=== PATIENT | female | born 1995 | race Caucasian/White ===

== ENCOUNTER 2017-07-06 23:37 | Inpatient (IN) | payer MEDICAID, OTHER ==
[~2017-07-06] VITALS: Ht 165.1 cm; Wt 94.0 kg
[2017-07-07 00:39] VITALS: BP 125/78; PULSE 90; RESP 18
[2017-07-07] MEDS ORDERED: LACTATED RINGER'S 1,000 ML IV SCH (00:41)
[2017-07-07] MEDS ORDERED: PNV1TABL12 PO (00:41)
[2017-07-07] MEDS ORDERED: CARBOPROST 250 MCG INJ IM PRN ×2 (01:00→14:00)
[2017-07-07] MEDS ORDERED: AMPICILLIN 2 GM/NS (PMX) 100 ML IV ONE (01:00)
[2017-07-07] MEDS ORDERED: OXYTOCIN 30 UNITS/LR 500 ML IV SCH ×3 (01:00)
[2017-07-07] MEDS ORDERED: IBUPROFEN 600 MG TAB PO PRN (01:00)
[2017-07-07] MEDS ORDERED: OXYTOCIN 30 UNITS/LR 500 ML IV PRN ×2 (01:00→14:00)
[2017-07-07] MEDS ORDERED: BUTORPHANOL 2 MG INJ IV PRN (01:00)
[2017-07-07] MEDS ORDERED: METHYLERGONOVINE 0.2 MG INJ IM PRN ×2 (01:00→14:00)
[2017-07-07] MEDS ORDERED: LIDOCAINE 1% (MPF) 30 ML INJ INJ PRN (01:00)
[2017-07-07] MEDS ORDERED: MISOPROSTOL 200 MCG TAB PR PRN ×2 (01:00→14:00)
--- NOTE | 2017-07-07 01:59 | TRIAGE ---
OB Triage Datetime Report Generated by CPN: 07/07/2017 01:59 Datetime: 07/07/2017 01:24 Assessment Type: Admission Assessment Vaginal Bleeding: None Maternal Assessment Level of Consciousness: Fully Conscious DTR's/Clonus: DTRs 2+; No Clonus Headache: Denies Blurred Vision: No Respiratory Effort: Unlabored; Regular Rhythm; Equal Expansion Breath Sounds, Left: Clear and Equal Breath Sounds, Right: Clear and Equal Nausea/Vomiting: Denies RUQ Epigastric Pain: Denies Lower Extremities Edema: None Degree: None Upper Extremities Edema: None Degree: None Facial Edema: None Fall Risk Assessment History of Falling: (0) No Secondary Diagnosis: (0) No Ambulatory Aid: (0) Bedrest/Nurse Assist IV Therapy: (0) No Gait: (0) Normal/Bedrest/Immobile Mental Status: (0) Oriented to Own Ability Fall Score: 0 Fall Risk Score Definition: No Risk: No action required Pain Assessment Pain Scale: 0 Pain Presence: None/Denies Pain Type: N/A Membrane Status: Meconium Membranes Ruptured Date/Time: 07/06/2017 23:00 Membranes Rupture Method: Spontaneous Amniotic Fluid Color: Heavy Meconium Amniotic Fluid Amount: Small Amniotic Fluid Odor: Normal Datetime: 07/07/2017 01:17 Time of Arrival: 07/06/2017 23:28 EGA: 40.3 Arrived By: Wheelchair Arrived From: Home Chief Complaint: c/o gush fluid at 2300 Movement: Present Contractions: Denies/Absent Rupture of Membranes: Ruptured Vaginal Bleeding: None Vaginal Discharge: Denies Recent Sexual Intercouse: Denies Abdominal Trauma: Not Applicable Patient Complaints: Other Time Provider Notified: 07/07/2017 00:28 Provider Notified: Dr Bates Initial Plan: SVE,EFM Datetime: 07/07/2017 00:25 Membrane Status: Ruptured Datetime: 07/07/2017 00:22 Stage of : OB Triage Labor Evaluation Monitor Mode: External Quality: Mild Pattern: Normal: <= 5 Contractions in 10 Minutes Resting Tone [place]: Relaxed Heart Rate FHR Baseline Rate: 130 Monitor Mode: External US FHR Baseline Changes: No Baseline Change Variability: Moderate 6-25 bpm Accelerations: 15X15 Decelerations: None Category: Category I Pain Assessment Pain Scale: 0 Pain Presence: None/Denies Vaginal Exam Dilatation (cms): 1.5 Effacement (%): 70 Station: -2 Exam By: Rea Silverio Membrane Status: Meconium Membranes Rupture Method: Spontaneous Amniotic Fluid Color: Heavy Meconium Amniotic Fluid Amount: Large Amniotic Fluid Odor: Normal Vaginal Bleeding: None Pool: Positive Nitrazine: Positive Cervix, Consistency: Soft Cervix, Position: Posterior Presentation 'A': Cephalic
[2017-07-07 02:18] LABS: BASOPHILS % 0.2 % (0.0-2.0); EOSINOPHILS # 0.1 10^3/ul (0.0-0.5); EOSINOPHILS % 0.6 % (0.0-7.0); HEMATOCRIT 40.2 % (37.0-47.0); HEMOGLOBIN 12.8 g/dl (12.0-16.0); LYMPHOCYTES # 2.2 10^3/ul (0.8-2.9); MEAN CORPUSCULAR HEMOGLOBIN 29.8 pg (29.0-33.0); MEAN CORPUSCULAR HGB CONC 31.8 g/dl (32.0-37.0); MEAN CORPUSCULAR VOLUME 93.7 fl (82.0-101.0); MEAN PLATELET VOLUME 12.1 fl (7.4-10.4); MONOCYTE # 0.9 10^3/ul (0.3-0.9); NEUTROPHIL # 9.1 10^3/ul (1.6-7.5); NEUTROPHILS % 73.2 % (39.0-77.0); PLATELET COUNT 176 10^3/UL (140-415); RED BLOOD COUNT 4.29 10^6/ul (4.20-5.40); WHITE BLOOD COUNT 12.4 10^3/ul (4.8-10.8)
[2017-07-07 02:33] LABS: INR 1.02; PROTIME 13.4 Sec (12.2-14.2)
[2017-07-07 02:34] LABS: PARTIAL THROMBOPLASTIN TIME 26.3 Sec (25.0-35.0)
[2017-07-07] MEDS: LACTATED RINGER'S 1,000 ML IV PRN ×2 (05:59→07:03)
[2017-07-07] MEDS ORDERED: FENTAnyl 2MCG/ML-ROPIV 0.2% 100 ML ONE (06:09)
[2017-07-07] MEDS: AMPICILLIN 1 GM/NS (PMX) 50 ML IV SCH ×2 (06:50→11:21)
[2017-07-07] MEDS ORDERED: NA BICARBONATE 8.4% 50 ML SYG ONE (07:00)
[2017-07-07] MEDS ORDERED: LIDOCAINE 2% (SDV) 5 ML INJ ONE (07:00)
--- NOTE | 2017-07-07 07:02 | RADRPT ---
PROCEDURE: Obstetrical ultrasound, limited. CLINICAL INDICATION: Pelvic pain. TECHNIQUE: Multiple sonographic images of the pelvis were obtained using transabdominal technique . Images were obtained with yeager scale and color Doppler. The images were reviewed on a PACS works tation. COMPARISON: No prior studies are available for comparison. FINDINGS: There is a single living intrauterine gestation with the fetus in a vertex presentation. hear t tones of 136 beats per minute are identified. The placenta is anterior in location, grade 2. The re is no evidence of placenta previa or abruption. Measurements were made in order to determine age. The results are as follows: BPD =9.39 cm HC =32.90 cm AC =38.46 cm FL =7.90 cm. Estimated gestational age of approximately 38 weeks and 5 days. The estimated date of delivery is 07/16/2017. The EFW = 4197 +/- 630 grams. Estimated weight percentage equals 84.5%. IMPRESSION: Single viable intrauterine gestation of approximately 38 weeks and 5 days, with an ultrasound CHEMO of 07/16/2017. .Lenny Napier MD, MD Date Time Electronically viewed and signed by .Lenny Napier MD, MD on 07/07/2017 07:02 .T/
[2017-07-07] MEDS ORDERED: LACTATED RINGER'S 1,000 ML IV ONE (10:20)
[2017-07-07] MEDS ORDERED: CITRIC ACID/NA CITRATE 30 ML CUP PO ONE (10:30)
[2017-07-07] MEDS ORDERED: METOCLOPRAMIDE 10 MG INJ IV ONE (10:30)
[2017-07-07] MEDS ORDERED: FAMOTIDINE 20 MG INJ IV ONE (10:30)
[2017-07-07] MEDS ORDERED: FENTAnyl 50 MCG/ML VIAL ONE (13:30)
[2017-07-07] MEDS ORDERED: morphine SULFATE/PF (10 MG/10 ML) INJ ONE (13:30)
--- NOTE | 2017-07-07 13:30 | HP ---
Date/Time of Note Date/Time of Note DATE: 07/07/17 TIME: 13:29 OB - History Hx of Present Free Text/Dictation term preg in labor 4100 gm baby Care: Good Care Ultrasounds: Normal mid trimester US Obstetrical Complications: None Medical Complications: None Past Family/Social History * Past Medical, Surgical, Family and Obstetric Histories reviewed from chart. OB Admission Exam Vital Signs Vital Signs Vital Signs Date Time Temp Pulse Resp B/P Pulse Ox O2 Delivery O2 Flow Rate FiO2 07/07/17 00:39 98.6 90 18 125/78 Room Air Physical Exam HEENT: WNL Heart: Rhythm Normal Lungs: Clear, Equal Abdomen: WNL Extremities: Normal Reflexes: Normal Cervical Dilatation: 2cm Effacement: 25% Station: -3 Membranes: Ruptured Amniotic Fluid: Thin Meconium Heart Rate: 130's Decelerations: No Decelerations Last 72 hours Lab Results CBC & BMP 07/07/17 01:03 OB Assessment/Plan Plan: Section VIVIEN DOYLE MD Jul 07, 2017 13:30
[2017-07-07] MEDS: CEFAZOLIN 2 GM/50 ML (PMX) 50 ML IVPB PRN ×2 (13:33→13:45)
[2017-07-07] MEDS ORDERED: PHENYLephrine (100 MCG/ML) 5ML SYG ONE ×3 (13:37→14:07)
[2017-07-07] MEDS ORDERED: KETOROLAC 30 MG INJ IV PRN ×2 (14:00→16:00)
[2017-07-07] MEDS ORDERED: NACL 0.9% 3 ML SYG IV SCH (14:00)
[2017-07-07] MEDS ORDERED: FENTAnyl 50 MCG/ML VIAL IV PRN (14:00)
[2017-07-07] MEDS ORDERED: PROCHLORPERAZINE 10 MG INJ IV PRN (14:00)
[2017-07-07] MEDS ORDERED: IBUPROFEN 800 MG TAB PO SCH (14:00)
[2017-07-07] MEDS ORDERED: OXYTOCIN 30 UNITS/LR 500 ML IV ONE (14:00)
[2017-07-07] MEDS ORDERED: ONDANSETRON 4 MG INJ IV PRN ×2 (14:00→16:00)
[2017-07-07] MEDS ORDERED: HYDROmorphONE (0.2 MG/ML) 10ML SYG IV PRN (14:00)
[2017-07-07] MEDS ORDERED: DIPHENHYDRAMINE 50 MG INJ IV PRN ×2 (14:00→16:00)
[2017-07-07] MEDS ORDERED: NA PHOSPHATE/BIPHOS 133 ML ENEMA PR PRN (14:00)
[2017-07-07] MEDS ORDERED: MEPERIDINE 25 MG INJ IV PRN (14:00)
[2017-07-07] MEDS ORDERED: LANOLIN 7 GM TUBE TOP PRN (14:00)
--- NOTE | 2017-07-07 14:44 | OPR ---
Operative Report Planned Procedure Procedure date Jul 07, 2017 Procedure(s) PRIMARY C/S FOR MACROSOMIA Performed by see signature line Assisting provider: VIVIEN DOYLE MD Anesthesiologist: CHELSEY LO MD Anesthesia Type: epidural Procedure Description Under satisfactory [EPIDURAL ] anesthesia, the patient was prepped and draped and placed in a supine position, tilted to the left. Pfannenstiel incision was made, carried through the subcutaneous tissue. Bleeders brought under control with electrocautery. Fascia incised to the length of the incision. Rectus muscles from the fascia, divided midline. Peritoneum exposed, entered through a transverse incision. Exploration of abdomen revealed gravid uterus. Bladder flap was developed. Transverse incision was made in the lower segment of the uterus. Amniotic sac ruptured. [] THICK MECONIUM amniotic fluid noted. [] Nasal oropharyngeal suction was performed. The baby was handed to the team for immediate attention. The placenta was delivered manually intact. Uterine cavity was cleaned with wet sponge and drainage established. Uterus closed in 2 layers using ONE MONOCRYL [] in continuous fashion. Peritoneal cavity irrigated with warm saline. Sponge, needle and instrument count reported to be correct. Abdominal peritoneum closed with [] continuously. Rectus muscle approximated with [ONE MONOCRYL ]. Fascia closed with []ONE MONOCRYL, and skin closed with everton. Estimated blood loss [700 CC. Post-Procedure Findings: Live Baby [], Apgars [] and [], weight [], position [], [] presentation []cord. Estimated blood loss: other (700) Specimen(s): no Grafts/Implants: no Complication(s): no Pt Condition post procedure: stable Physician Certification I, the undersigned physician, hereby certify that I have discussed the procedure described in this consent form with this patient (or the patient's legal access service representative), including: * The risk and benefits of the procedure; * Any adverse reactions that may reasonably be expected to occur; * Any alternative efficacious methods of treatment which may be medically viable ; * The potential problems that may occur during recuperation; * Potential for blood transfusion and associated risks/benefits; and * Any research or economic interest I may have regarding this treatment. I further certify that the patient/legally responsible person was encouraged to ask question and that all questions were answered. VIVIEN DOYLE MD Jul 07, 2017 14:44
[2017-07-07] MEDS ORDERED: ZOLPIDEM 5 MG TAB PO PRN (16:00)
[2017-07-07] MEDS ORDERED: NALOXONE (0.4 MG/ML) INJ IV PRN (16:00)
[2017-07-07] MEDS ORDERED: HYDROmorphONE 0.5 MG/0.5 ML SYG IV PRN ×2 (16:00)
[2017-07-07 17:30] VITALS: BP 126/85; PULSE 93; RESP 18
[2017-07-07] MEDS: LACTATED RINGER'S 1,000 ML IV SCH ×2 (18:13→21:36)
[2017-07-07] MEDS: OXYTOCIN 30 UNITS/LR 500 ML IV SCH ×2 (18:13→22:17)
[2017-07-07 20:00] VITALS: BP 120/79; PULSE 94; RESP 21
[2017-07-07] MEDS ORDERED: INFLUENZA VIRUS VACCINE 0.5 ML SYG IM* ONE (21:00)
[2017-07-08] VITALS: BP 112/67; PULSE 96; RESP 20
[2017-07-08] MEDS: LACTATED RINGER'S 1,000 ML IV SCH ×2 (02:47→10:10)
[2017-07-08 04:00] VITALS: BP 108/57; PULSE 91; RESP 19
[2017-07-08 08:20] VITALS: BP 111/78; PULSE 90; RESP 19
[2017-07-08 08:23] LABS: BASOPHILS % 0.3 % (0.0-2.0); EOSINOPHILS % 0.2 % (0.0-7.0); HEMATOCRIT 33.4 % (37.0-47.0); HEMOGLOBIN 10.8 g/dl (12.0-16.0); LYMPHOCYTES # 1.9 10^3/ul (0.8-2.9); LYMPHOCYTES % 13.5 % (15.0-51.0); MEAN CORPUSCULAR HEMOGLOBIN 30.7 pg (29.0-33.0); MEAN CORPUSCULAR HGB CONC 32.3 g/dl (32.0-37.0); MEAN CORPUSCULAR VOLUME 94.9 fl (82.0-101.0); MEAN PLATELET VOLUME 11.9 fl (7.4-10.4); MONOCYTE # 0.9 10^3/ul (0.3-0.9); MONOCYTES % 6.2 % (0.0-11.0); NEUTROPHILS % 79.3 % (39.0-77.0); PLATELET COUNT 128 10^3/UL (140-415); RED BLOOD COUNT 3.52 10^6/ul (4.20-5.40); RED CELL DISTRIBUTION WIDTH 14.8 % (11.5-14.5); WHITE BLOOD COUNT 13.9 10^3/ul (4.8-10.8)
[2017-07-08 11:40] VITALS: BP 99/63; PULSE 88; RESP 18
--- NOTE | 2017-07-08 11:46 | QN ---
Documentation Comment pod 1 pt steve becker vss exam wnl CDI a/p pod 1 continue care YOLANDA CARLIN MD Jul 08, 2017 11:46
[2017-07-08] MEDS: IBUPROFEN 800 MG TAB PO SCH ×2 (14:33→22:02)
[2017-07-08 15:46] VITALS: RESP 18
[2017-07-08] MEDS: HYDROCODONE/APAP (5/325) TAB PO PRN (15:46)
[2017-07-08 20:00] VITALS: BP 100/59; PULSE 92; RESP 18
[2017-07-09 04:00] VITALS: BP 109/72; PULSE 90; RESP 19
[2017-07-09] MEDS: IBUPROFEN 800 MG TAB PO SCH ×3 (06:35→21:46)
[2017-07-09 08:20] VITALS: BP 117/76; PULSE 86; RESP 18
[2017-07-09] MEDS: HYDROCODONE/APAP (5/325) TAB PO PRN (12:11)
[2017-07-09 16:00] VITALS: BP_SYST 96; BP_SYST 99; BP_DIAS 51; BP_DIAS 67; PULSE 75; PULSE 97; RESP 19
[2017-07-09 20:00] VITALS: BP 106/66; PULSE 92; RESP 18
[2017-07-10 04:00] VITALS: BP 108/64; PULSE 82; RESP 17
[2017-07-10] MEDS: HYDROCODONE/APAP (5/325) TAB PO PRN (04:23)
[2017-07-10] MEDS: IBUPROFEN 800 MG TAB PO SCH ×3 (06:00→21:50)
[2017-07-10] MEDS ORDERED: DIPHTH/TET/ACEL PERTUSS (ADULT) 0.5 ML VIAL IM* ONE (09:00)
[2017-07-10] MEDS ORDERED: MEASLES,MUMPS,RUBELLA VACCINE INJ SC* ONE (09:00)
--- NOTE | 2017-07-10 09:16 | QN ---
Documentation Comment doing well vss abd soft d/c home today VIVIEN DOYLE MD Jul 10, 2017 09:16
--- NOTE | 2017-07-10 09:17 | PD.PPDC ---
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
--- NOTE | 2017-07-10 09:17 | DS ---
Date/Time of Note Date/Time of Note DATE: 07/10/17 TIME: 09:16 Discharge Summary Admission/Discharge Info Admit Date/Time Jul 07, 2017 at 00:30 Discharge Date/Time Discharge Diagnosis term preg Patient Condition: Stable Procedures c/s Hospital Course unremarkable Home Meds Reported Medications Pnv Cmb#21/Iron/Folic Acid ( Complete Caplet) 1 Each Tablet, 1 EACH PO DAILY, TAB 07/07/17 Follow-up Plan 3 weeks Primary Care Provider Care Physician No Primary VIVIEN DOYLE MD Jul 10, 2017 09:17
[2017-07-10 13:46] LABS: RUBELLA ANTIBODY - IGG 3.17 index
[2017-07-10 16:45] VITALS: BP 121/71; PULSE 83; RESP 18
[2017-07-10 20:30] VITALS: BP 114/71; PULSE 86; RESP 16
[2017-07-11 04:15] VITALS: BP 118/81; PULSE 80
[2017-07-11] MEDS: IBUPROFEN 800 MG TAB PO SCH (05:36)
[2017-07-11 09:00] VITALS: BP 122/83; PULSE 84; RESP 18
== END 2017-07-11 12:30 | disposition home or self-care (01) | DRG 766 ==
LOC: OBT 23:37 → L-D 23:40 → OBT 07-07 00:30 → L-D 07-07 13:22 → PP1 07-07 17:44
PROVIDERS: ADMIT Obstetrics & Gynecology; ATTEND Obstetrics & Gynecology
PROC: 3E0P3VZ Introduction of Hormone into Female Reproductive, Percutaneous Approach (ICD-10-PCS; 2017-07-07)
PROC: 10D00Z1 Extraction of Products of Conception, Low, Open Approach (ICD-10-PCS; principal; 2017-07-07 13:15)
DX: O36.63X0 Maternal care for excessive fetal growth, third trimester, not applicable or unspecified (principal); O48.0 Post-term pregnancy; Z3A.40 40 weeks gestation of pregnancy; Z37.0 Single live birth
CPT/HCPCS: 62319; 76815; 85025; 85610; 85730; 86592; 86762; 86900; 86901; 87340; 90686; 90715; 94760; 99464; G0463; J0290; J0690; J1200; J1885; J2210; J2274; J2370; J2405; J2590; J2765; J3010; J7120